=== PATIENT | male | born 1985 | race Two or more races ===

== ENCOUNTER 2021-02-20 15:45 | Emergency (ER) | payer MEDICAID ==
[~2021-02-20] VITALS: Ht 175.3 cm; Wt 95.0 kg
[2021-02-20] MEDS ORDERED: HYDROCODONE/ACETAMINOPHEN 5/325MG TABLET PO ONE (17:30)
[2021-02-20] MEDS ORDERED: KETOROLAC 60MG/2ML VIAL IM ONE (17:30)
[2021-02-20] MEDS ORDERED: HYDR-4346 MT (19:58)
[2021-02-20] MEDS ORDERED: IBUP-2028 MT (19:58)
[2021-02-20 20:21] VITALS: BP 130/90
== END 2021-02-20 20:22 | disposition home or self-care (01) ==
LOC: ER 15:45
DX: S83.92XA Sprain of unspecified site of left knee, initial encounter (principal); X58.XXXA Exposure to other specified factors, initial encounter; Y93.89 Activity, other specified; Y92.89 Other specified places as the place of occurrence of the external cause; Y99.8 Other external cause status
CPT/HCPCS: 29505; 73562; 93971; 96372; 99284; J1885; Z7610

== ENCOUNTER 2021-06-14 19:57 | Emergency (ER) | payer MEDICAID ==
[~2021-06-14] VITALS: Ht 177.8 cm; Wt 109.0 kg
[~2021-06-14 19:57] MED LIST: HYDR-4346 MT; IBUP-2028 MT
[2021-06-14] MEDS ORDERED: IBUPROFEN 800MG TABLET PO NR (23:15)
[2021-06-14] MEDS ORDERED: LIDOCAINE 5% PATCH TOP NR (23:15)
[2021-06-14 23:27] LABS: BASOPHILS % 0.9 % (0.0-2.0); EOSINOPHILS % 4.9 % (0.0-5.0); HEMATOCRIT. 49.5 % (42.0-52.0); HEMOGLOBIN. 16.9 g/dL (14.0-18.0); LYMPHOCYTES % 38.9 % (20.0-50.0); MEAN CORPUSCULAR HEMOGLOBIN 31.9 pg (28.0-32.0); MEAN CORPUSCULAR VOLUME 93.4 fL (80.0-94.0); MEAN PLATELET VOLUME 9.4 fl (7.4-10.4); MONOCYTES % 9.4 % (2.0-8.0); NEUTROPHILS % 45.9 % (40.0-76.0); PLATELET 211 x1000/uL (130-400); RED CELL DISTRIBUTION WIDTH 13.7 % (11.6-14.6)
[2021-06-14 23:37] LABS: CHLORIDE 106 mEq/L (98-107)
[2021-06-15] MEDS ORDERED: KETOROLAC 15MG/ML VIAL IV NR (01:30)
[2021-06-15] MEDS ORDERED: IBUP-2029 MT (02:04)
[2021-06-15] MEDS ORDERED: HYDR-4001 MT (02:37)
[2021-06-15] MEDS ORDERED: HYDROCODONE/ACETAMINOPHEN 5/325MG TABLET PO ONE (02:45)
[2021-06-15 02:59] VITALS: BP 145/89
== END 2021-06-15 03:02 | disposition home or self-care (01) ==
LOC: ER 19:57
DX: S22.42XA Multiple fractures of ribs, left side, initial encounter for closed fracture (principal); S27.9XXA Injury of unspecified intrathoracic organ, initial encounter; R05 Cough; F17.200 Nicotine dependence, unspecified, uncomplicated; Z13.9 Encounter for screening, unspecified; Z20.822 Contact with and (suspected) exposure to COVID-19; W18.30XA Fall on same level, unspecified, initial encounter; Y93.89 Activity, other specified; Y92.89 Other specified places as the place of occurrence of the external cause; Y99.8 Other external cause status
CPT/HCPCS: 36415; 71250; 80048; 85025; 96374; 99285; C9803; J1885; U0003; U0005

== ENCOUNTER 2022-12-07 15:06 | Emergency (ER) | payer MEDICAID ==
[~2022-12-07] VITALS: Ht 167.6 cm; Wt 80.0 kg
[~2022-12-07 15:06] MED LIST changes: +HYDR-4001 MT; +IBUP-2029 MT
[2022-12-07 15:56] VITALS: BP 171/100
[2022-12-07] MEDS ORDERED: T3 PO (18:41)
[2022-12-07] MEDS ORDERED: IBUP-2029 MT (18:44)
== END 2022-12-07 19:21 | disposition home or self-care (01) ==
LOC: ER 15:29
DX: S62.397A Other fracture of fifth metacarpal bone, left hand, initial encounter for closed fracture (principal); W22.09XA Striking against other stationary object, initial encounter; Y93.89 Activity, other specified; Y92.89 Other specified places as the place of occurrence of the external cause; Z91.010 Allergy to peanuts
CPT/HCPCS: 29125; 73130; 99283